=== PATIENT | female | born 1990 | race Caucasian/White ===

== ENCOUNTER 2017-03-26 19:52 | Emergency (ER) | payer OTHER ==
[~2017-03-26] VITALS: Ht 160 cm; Wt 53.5 kg
[2017-03-26] MEDS ORDERED: AMOXIL PO STA (20:41)
[2017-03-26] MEDS ORDERED: AMOXIL PO ONE (20:42)
[2017-03-26] MEDS ORDERED: TORADOL ONE (20:42)
--- NOTE | 2017-03-26 20:45 | ER.PDOC ---
General Chief Complaint: Toothache Stated Complaint: TOOTHACHE Time seen by MD: 20:15 Source: patient History of Present Illness Associated Symptoms: jaw pain (L) Severity: severe Worsen By: cold Prior symptoms/Treatment: Similar symptoms previous Allergies: Coded Allergies: No Known Allergies (Unverified , 12/05/13) Past Medical History Medical History: no pertinent history Surgical History: no surgical history LMP (females 10-50): this week Social History Smoking: greater than 1 pack/day Alcohol Use: none Drug Use: marijuana Constitutional: no symptoms reported Eyes: no symptoms reported Ears: no symptoms reported Nose: no symptoms reported Mouth: pain Throat: no symptoms reported Respiratory: no symptoms reported Cardiovascular: no symptoms reported Gastrointestinal: no symptoms reported Musculoskeletal: no symptoms reported Skin: no symptoms reported Neurological: no symptoms reported Hematologic/Lymphatic: no symptoms reported Immunological/Allergic: no symptoms reported Physical Exam General Appearance: alert, moderate distress Head/Neck: head nml inspection, neck nml inspection, trachea midline, no lymphadenopathy, thyroid nml Eyes: eyes nml inspection, PERRL, no nystagmus Mouth: lips, gums nml, no drooling, no thrush, membranes nml, dental tenderness (Multiple fractured teeth in the lt upper and lower jaws with cavities and gum tenderness.), gum swelling Throat: pharynx nml, voice nml, no airway problems Ears/Nose: nml inspection, TM erythema, loss of TM landmarks Respiratory: no resp. distress, lungs clear, wheezing CVS: reg. rate & rhythm, heart sounds nml Abdomen: non-tender, no organomegaly, tenderness Extremities: non-tender, ROM nml Skin Exam: Normal Color, Warm/Dry NEURO/PSYCH: oriented X3, mood/effect nml Progress Progress For Toradol 60mg IM x1 stat. Departure Time of Disposition: 20:51 Disposition: 01 HOME, SELF-CARE Impression: Primary Impression: Toothache Condition: Stable Referrals: PCP,UNKNOWN (PCP) PRIMARY CARE PROVIDER Duration or Time Spent with Pa: 15mins. ALIDA GUIDRY MD Mar 26, 2017 20:45
[2017-03-26] MEDS ORDERED: TORADOL IM ONE (21:00)
[2017-03-26 21:06] VITALS: BP 120/68
== END 2017-03-26 21:07 | disposition home or self-care (01) ==
LOC: ER 19:52
DX: K02.9 Dental caries, unspecified (principal)
CPT/HCPCS: 96372; 99283; J1885